=== PATIENT | female | born 1995 ===

== ENCOUNTER 2016-09-27 16:50 | Emergency (ER) | payer OTHER ==
[2016-09-27 16:50] VITALS: BMI 23.0
[2016-09-27 16:56] VITALS: BP 122/86; RESP 16; TEMP 98.2
[2016-09-27 17:21] VITALS: O2SAT 98
--- NOTE | 2016-09-27 18:04 | ED PDOC ---
Arrival/HPI - General Chief Complaint: Back Pain Time Seen by Provider: 09/27/16 17:09 Historian: Patient - History of Present Illness Narrative History of Present Illness (Text): 09/27/16 19:01 21-year-old female presents today with upper back pain that started while sitting on the couch. Patient denies chest pain or shortness of breath. She describes a sharp stabbing pain to the upper back that feels like muscle spasms. She denies radiation of the pain to the chest. Denies fevers or chills. Denies recent cough. Patient denies urinary symptoms. Patient states pain is worse with movement and deep inspiration. Patient states she has a history of scoliosis. Patient is a nonsmoker. Denies any recent travel. Patient denies any control usage. Past Medical History - Provider Review Nursing Documentation Reviewed: Yes - Travel History Have you recently traveled outside [place] w/in the past 3 mons?: No - Infectious Disease Hx of Infectious Diseases: None - Tetanus Immunization Tetanus Immunization: Unknown - Pulmonary Hx Respiratory Disorders: Yes Hx Asthma: Yes - Neurological Hx Neurological Disorder: No - HEENT Hx HEENT Disorder: No - Renal Hx Renal Disorder: No - Hematological/Oncological Hx Blood Disorders: No - Integumentary Hx Dermatological Disorder: No - Musculoskeletal/Rheumatological Other/Comment: scoliosis - Gastrointestinal Hx Gastrointestinal Disorders: No - Genitourinary/Gynecological Hx Genitourinary Disorders: No - Psychiatric Hx Psychophysiologic Disorder: No Hx Substance Use: No - Anesthesia Hx Anesthesia: No Family/Social History - Physician Review Nursing Documentation Reviewed: Yes Family/Social History: Unknown Family HX Smoking Status: Never Smoked Hx Alcohol Use: No Hx Substance Use: No Allergies/Home Meds Allergies/Adverse Reactions: Allergies No Known Allergies Allergy (Verified 09/27/16 16:56) Review of Systems - Review of Systems Constitutional: absent: Fatigue, Fevers ENT: absent: Sinus Congestion Respiratory: absent: SOB, Cough Cardiovascular: absent: Chest Pain, Palpitations Gastrointestinal: absent: Abdominal Pain, Diarrhea, Nausea, Vomiting Genitourinary Female: absent: Dysuria, Frequency, Hematuria Musculoskeletal: Back Pain. absent: Arthralgias, Neck Pain Skin: absent: Rash, Pruritis Psychiatric: absent: Anxiety, Depression Physical Exam Vital Signs Reviewed: Yes Vital Signs Temp Pulse Resp BP Pulse Ox 09/27/16 17:14 84 16 98 09/27/16 16:52 98.2 F 82 16 122/86 99 Temperature: Afebrile Blood Pressure: Normal Pulse: Regular Respiratory Rate: Normal Appearance: Positive for: Well-Appearing, Non-Toxic, Comfortable Pain Distress: None Mental Status: Positive for: Alert and Oriented X 3 - Systems Exam Head: Present: Atraumatic Mouth: Present: Moist Mucous Membranes Neck: Present: Normal Range of Motion Respiratory/Chest: Present: Clear to Auscultation, Good Air Exchange. No: Respiratory Distress, Accessory Muscle Use Cardiovascular: Present: Regular Rate and Rhythm, Normal S1, S2. No: Murmurs Abdomen: No: Tenderness Back: Present: Normal Inspection, Paraspinal Tenderness (Positive bilateral tenderness noted to the paraspinal muscles of the thoracic spine. Scoliosis noted. No midline tenderness. No erythema no edema and no ecchymosis. There is no lower back tenderness. There is no neck tenderness.). No: CVA Tenderness, Midline Tenderness Upper Extremity: Present: Normal ROM Lower Extremity: No: Edema Skin: Present: Warm, Dry, Normal Color. No: Rashes Psychiatric: Present: Alert, Oriented x 3 Medical Decision Making ED Course and Treatment: 09/27/16 19:03 Patient nontoxic well-appearing in no distress with stable vital signs. Toradol and Flexeril given Chest x-ray shows no infiltrate or effusion or cardiomegaly Urinalysis shows no blood, no infection Patient is perc negative vitals stable; no tachycardia, no hypoxia, no cp or sob. Patient reassessment: Feeling better with medications ambulating with a steady gait. I advised to followup with the orthopedist within the next 2 days advised taking medications as prescribed. advised Return if symptoms worsen persist or new symptoms develop. I advised heating pad and massage Patient verbalizes understanding of discharge instructions and need for immediate followup. all aspects of this case were discussed the attending of record. Impression: Back pain Motrin every 6 hours as needed for pain Flexeril one tablet every 8 hours as needed for muscle spasms: May cause drowsiness Followup with the orthopedist within the next 2 days Followup with primary care physician within the next 2 days Return if symptoms worsen persist or if new symptoms develop - Lab Interpretations Lab Results: Lab Results 09/27/16 17:37: Urine Color Yellow, Urine Appearance Clear, Urine pH 6.0, Ur Specific [place] >= 1.030, Urine Protein Trace H, Urine Glucose (UA) Negative, Urine Ketones Negative, Urine Blood Negative, Urine Nitrate Negative, Urine Bilirubin Negative, Urine Urobilinogen 2.0 H, Ur Leukocyte Esterase Negative, Urine RBC 0 - 2, Urine WBC 0 - 2, Ur Epithelial Cells 4 - 5, Urine Bacteria Few - RAD Interpretation Radiology Orders: 09/27/16 17:33 CHEST TWO VIEWS (PA/LAT) [RAD] Stat - Medication Orders Current Medication Orders: Discontinued Medications Cyclobenzaprine HCl (Flexeril) 5 mg PO STAT STA Stop: 09/27/16 17:34 Last Admin: 09/27/16 17:48 Dose: 5 MG Ketorolac Tromethamine (Toradol) 30 mg IM STAT STA Stop: 09/27/16 17:37 Last Admin: 09/27/16 17:48 Dose: 30 MG IM Administration Charges Document 09/27/16 17:48 [email or web address] (Rec: 09/27/16 17:48 [email or web address] [facility] [place] Injection Site MAR Injection Site Right Deltoid Charges for Administration # of IM Administrations 1 Disposition/Present on Arrival - Present on Arrival Any Indicators Present on Arrival: No History of DVT/PE: No History of Uncontrolled Diabetes: No Urinary Catheter: No History of Decub. Ulcer: No History Surgical Site Infection Following: None - Disposition Have Diagnosis and Disposition been Completed?: Yes Diagnosis: Back pain Disposition: HOME/ ROUTINE Disposition Time: 18:04 Patient Plan: Discharge Condition: GOOD Discharge Instructions (ExitCare): Back Pain (ED) Additional Instructions: Motrin every 6 hours as needed for pain Flexeril one tablet every 8 hours as needed for muscle spasms colon may cause drowsiness Use heating pad as needed for pain Follow up with a primary care physician/clinic within the next 2 days. Follow up with the orthopedist within the next 2 days. Return immediately if symptoms worsen persist or if new symptoms develop: Increasing pain, shortness of breath, chest pain, fever, chills or any other concerning symptoms develop Prescriptions: Cyclobenzaprine [Flexeril] 5 mg PO Q8 #10 tab Ibuprofen [Motrin Tab] 400 mg PO Q6H PRN #20 tab PRN Reason: Pain, Mild (1-3) Referrals: [facility] [place] [facility] [place] - Follow up with primary [facility] [place] [Outside] - Follow up with primary Cameron Ward III, MD [Medical Doctor] - Follow up with primary
[2016-09-27 18:09] LABS: URINE BILIRUBIN NEGATIVE (NEGATIVE); URINE BLOOD NEGATIVE (NEGATIVE); URINE GLUCOSE (UA) NEGATIVE (NEGATIVE); URINE KETONE NEGATIVE (NEGATIVE); URINE LEUKOCYTE ESTERASE NEGATIVE Leu/uL (NEGATIVE); URINE PROTEIN TRACE mg/dL (<30 mg/dL)
[2016-09-27 18:10] LABS: URINE APPEARANCE CLEAR (CLEAR); URINE COLOR YELLOW (YELLOW)
[2016-09-27 18:19] LABS: URINE RBC 0 - 2 /hpf (0-2); URINE WBC 0 - 2 /hpf (0-6)
[2016-09-27 18:20] LABS: URINE BACTERIA FEW (NEG)
--- NOTE | 2016-09-27 18:24 | RAD ---
HISTORY: upper back pain COMPARISON: None available. TECHNIQUE: Chest PA and lateral FINDINGS: LUNGS: No focal consolidation. Please note that chest x-ray has limited sensitivity for the detection of pulmonary masses. PLEURA: No significant pleural effusion identified. No definite pneumothorax . CARDIOVASCULAR: The cardiomediastinal silhouette appears within normal limits of size. OSSEOUS STRUCTURES: Scoliosis. VISUALIZED UPPER ABDOMEN: Unremarkable. OTHER FINDINGS: None. IMPRESSION: No focal consolidation, significant pleural effusion, or definite pneumothorax identified.
[2016-09-27 19:07] VITALS: PULSE 80
== END 2016-09-27 19:07 | disposition home or self-care (01) ==
LOC: ED 16:50
DX: M54.9 Dorsalgia, unspecified (principal)
CPT/HCPCS: 71020; 81001; 96372; 99282; J1885